=== PATIENT | male | born 1975 | race Caucasian/White ===

== ENCOUNTER → 2016-12-09 | Outpatient (CLI) | payer BC ==
[2016-12-09 15:20] LABS: ALT/SGPT 56 U/L (12-78); AST/SGOT 30 U/L (15-37); BLOOD UREA NITROGEN 15 mg/dl (7-18); BUN/CREATININE RATIO 15.9 (10-20); CALCIUM 9.6 mg/dl (8.5-10.1); CARBON DIOXIDE 30 mmol/L (21-32); CHLORIDE 104 mmol/L (98-107); CREATININE 0.97 mg/dl (0.60-1.40); GLUCOSE 84 mg/dl (70-99); POTASSIUM 4.1 mmol/L (3.5-5.1); SODIUM 139 mmol/L (136-145)
[2016-12-09 15:22] LABS: ALB/GLOB RATIO 1.1 (0.9-2); ALKALINE PHOSPHATASE 82 U/L (45-117)
== END | disposition home or self-care (01) ==
LOC: C.LAB1850 14:02
PROVIDERS: ATTEND Internal Medicine
DX: K76.0 Fatty (change of) liver, not elsewhere classified (principal); E87.5 Hyperkalemia

== ENCOUNTER → 2017-03-11 | Outpatient (CLI) | payer BC ==
--- NOTE | 2017-03-11 15:23 | DIAGNOSTIC IMAGING REPORT ---
R KNEE 3 VIEWS CLINICAL HISTORY: M25.40 Painful swelling of [id number] pain. Edema. COMPARISON: None. DISCUSSION: The bones and joint spaces appear intact. There is no evidence of fracture, dislocation or bony disease. 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 No significant joint effusion. 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 Otherwise negative study. The above report was generated using voice recognition software. It may contain grammatical, syntax or spelling errors. Electronically signed by: Norberto Tomas M.D. 03/11/2017 3:21 PM Dictated Date/Time: 03/11/2017 3:17 PM
== END | disposition home or self-care (01) ==
LOC: C.RAD1850 15:08
PROVIDERS: ATTEND Internal Medicine
DX: M25.40 Effusion, unspecified joint (principal); M25.561 Pain in right knee; M17.11 Unilateral primary osteoarthritis, right knee